=== PATIENT | male | born 1940 | race Caucasian/White ===

== ENCOUNTER → 2020-11-15 | Outpatient (CLI) | payer MEDICARE ==
[~2020-11-15] MED LIST: COLACE 100MG C100 MG PO; CRESTOR10 MG PO; ETODOLAC400 MG PO; FLOVENT HFA10.6 GM INH; LISINOPRIL20 MG PO; LOPRESSOR 25 MG25 MG PO; LOVENOX SY40 MG/0.4 SQ; NORCO 5-325 TA1 EACH PO; NORVASC 5 MG TAB5 MG PO; PERCOCET 7.5-31 EACH PO; POTASSIUM CHLO20 ME1 PO; PROVENTIL HFA 61 INH INH; SINGULAIR10 MG PO; THEOPHYLLINE400 MG PO; TYLENOL 325MG325 MG PO; VITAMIN D250000 UNIT PO; ZYLOPRIM 100 M100 MG PO
[2020-11-16 10:14] LABS: CREATININE, URINE 177.7 mg/dL (Not Estab.)
== END ==
LOC: US 09-13 14:00
PROVIDERS: Internal Medicine Nephrology
DX: N18.9 Chronic kidney disease, unspecified (principal); N28.89 Other specified disorders of kidney and ureter
CPT/HCPCS: 36415; 80053; 81001; 82043; 82570; 84156

== ENCOUNTER → 2021-07-15 | Outpatient (CLI) | payer MEDICARE | LOC: HEART CORB 10:38 | DX: I11.0 Hypertensive heart disease with heart failure (principal); I50.30 Unspecified diastolic (congestive) heart failure; I45.2 Bifascicular block; E78.5 Hyperlipidemia, unspecified; R01.1 Cardiac murmur, unspecified; R06.02 Shortness of breath; I25.118 Atherosclerotic heart disease of native coronary artery with other forms of angina pectoris; F17.290 Nicotine dependence, other tobacco product, uncomplicated | CPT/HCPCS: 78452; A9502; J2785 ==